=== PATIENT | male | born 1960 | race Two or more races ===

== ENCOUNTER 2020-04-01 16:05 | Inpatient (IN) | payer OTHER ==
[~2020-04-01] VITALS: Ht 170.2 cm; Wt 84.0 kg
[~2020-04-01 16:05] MED LIST: ASPI-231 PO; CARV25TA PO
[2020-04-01] MEDS ORDERED: FLEET ENEMA(ADULT) 135 ML PR ONE (16:30)
[2020-04-01] MEDS ORDERED: ONDANSETRON HCL 4 MG/2 ML VIAL IV ONE (16:30)
[2020-04-01] MEDS ORDERED: MORPHINE SULFATE 4 MG/ML SYR/VIAL IV ONE (16:30)
[2020-04-01 16:49] LABS: Basophils # (auto) 0 10 ^3/uL (0-0.2); Basophils % (auto) 0.8 % (0.0-2.0); Eosinophils # (auto) 0.1 10 ^3/uL (0-0.8); Eosinophils % (auto) 1.2 % (0.0-7.0); Hematocrit 38.2 % (41.0-53.0); Hemoglobin 13.1 g/dL (13.5-17.5); Lymphocytes % (auto) 19.1 % (10.0-50.0); Mean Corpuscular Hgb Conc. 34.3 g/dL (32.0-36.0); Mean Corpuscular Volume 96.1 fL (80.0-100.0); Monocytes # (auto) 0.4 10 ^3/uL (0-1.3); Monocytes % (auto) 7.3 % (0.0-12.0); Neutrophils # (auto) 3.8 10 ^3/uL (1.6-8.6); Neutrophils % (auto) 71.6 % (37.0-80.0); Red Blood Cells 3.98 10^6/uL (4.5-5.90); Red Cell Distribution Width 12.1 % (11.8-14.3); White Blood Cell 5.3 10^3/uL (4.4-10.8)
[2020-04-01 17:06] LABS: Calcium 8.6 mg/dL (8.5-10.1); Potassium 3.9 mmol/L (3.5-5.1)
[2020-04-01 17:12] LABS: BUN/Creatinine Ratio 12.1; Bilirubin, Total 0.8 mg/dL (0.2-1.0); Total Protein 7.7 g/dL (6.4-8.2)
[2020-04-01] MEDS ORDERED: ENOXAPARIN SOD 80 MG/0.8ML SYRINGE SC ONE (17:30)
[2020-04-01] MEDS ORDERED: ASPirin 81 mg TAB PO ONE (17:30)
[2020-04-01] MEDS ORDERED: NITROGLYCERIN 0.4 MG SL TAB SL PRN (19:00)
[2020-04-01] MEDS ORDERED: MORPHINE SULFATE INJECTION 2 MG/ML SYRG IV PRN (19:00)
[2020-04-01] MEDS ORDERED: ACETAMINOPHEN 500 MG TAB PO PRN (19:00)
[2020-04-01] MEDS ORDERED: DEXTROSE (50%) 50ML SYRG IV PRN (19:00)
[2020-04-01] MEDS ORDERED: POLYETHYLENE GLYCOL 17 GM PWDR PO ONE (19:00)
[2020-04-01] MEDS ORDERED: hydrALAZINE HCL 20 MG/ML VL IV PRN (19:00)
[2020-04-01] MEDS ORDERED: HYDROcodone-ACET 5/325MG TAB PO PRN (19:00)
[2020-04-01 19:16] LABS: CRP High Sensitivity 0.11 mg/dL (< 0.3)
[2020-04-01] MEDS: ACCU-CHEK COMFORT CURVE STRIP VI SCH (22:38)
[2020-04-01] MEDS: InsuLIN REG 1unit/0.01ml Soln (100units/ml) SC SCH (22:39)
[2020-04-01] MEDS: CARVEDILOL 12.5 MG TAB PO SCH (22:40)
[2020-04-01] MEDS: ATORVASTATIN 20 MG TAB PO SCH (22:59)
[2020-04-01] MEDS: DOCUSATE SOD 100 MG CAP PO SCH (22:59)
[2020-04-01] MEDS: LACTULOSE 20Gm/30ML SOLN PO SCH (22:59)
[2020-04-02] MEDS: LACTULOSE 20Gm/30ML SOLN PO SCH ×6 (03:26→21:15)
[2020-04-02 03:31] LABS: BUN/Creatinine Ratio 12.5; Calcium 8.6 mg/dL (8.5-10.1)
[2020-04-02] MEDS: ONDANSETRON HCL 4 MG/2 ML VIAL IV PRN (04:28)
[2020-04-02] MEDS: MORPHINE SULFATE INJECTION 2 MG/ML SYRG IV PRN (04:28)
[2020-04-02] MEDS ORDERED: FLEET ENEMA(ADULT) 135 ML PR ONE (04:45)
[2020-04-02] MEDS: InsuLIN REG 1unit/0.01ml Soln (100units/ml) SC SCH ×4 (07:00→21:17)
[2020-04-02] MEDS: ACCU-CHEK COMFORT CURVE STRIP VI SCH ×4 (07:06→21:17)
[2020-04-02 08:05] LABS: Basophils # (auto) 0 10 ^3/uL (0-0.2); Basophils % (auto) 0.6 % (0.0-2.0); Eosinophils # (auto) 0.1 10 ^3/uL (0-0.8); Hematocrit 37.7 % (41.0-53.0); Hemoglobin 12.9 g/dL (13.5-17.5); Lymphocytes # (auto) 0.8 10 ^3/uL (0.4-5.4); Lymphocytes % (auto) 13.8 % (10.0-50.0); Mean Corpuscular Hemoglobin 32.6 pg (28.0-32.0); Mean Corpuscular Hgb Conc. 34.3 g/dL (32.0-36.0); Mean Corpuscular Volume 95.3 fL (80.0-100.0); Monocytes # (auto) 0.4 10 ^3/uL (0-1.3); Monocytes % (auto) 7.7 % (0.0-12.0); Neutrophils # (auto) 4.4 10 ^3/uL (1.6-8.6); Neutrophils % (auto) 76.9 % (37.0-80.0); Nucleated Red Blood Cells % 0.1 %; Red Blood Cells 3.95 10^6/uL (4.5-5.90); Red Cell Distribution Width 12.1 % (11.8-14.3); White Blood Cell 5.7 10^3/uL (4.4-10.8)
[2020-04-02] MEDS: DOCUSATE SOD 100 MG CAP PO SCH ×2 (10:00→21:15)
[2020-04-02] MEDS ORDERED: LISINOPRIL 10 MG TAB PO SCH (10:00)
[2020-04-02] MEDS: CARVEDILOL 12.5 MG TAB PO SCH ×2 (10:00→22:44)
[2020-04-02 10:10] LABS: Urine Bacteria NONE SEEN /hpf (None Seen); Urine Blood Negative /uL (Negative); Urine Hyaline Cast MANY /lpf (0 - 2); Urine Mucus FEW (None Seen); Urine Specific Gravity 1.033 (1.001-1.035); Urine WBC 2 /hpf (0 - 3)
[2020-04-02] MEDS: FAMOTIDINE 20 MG TAB PO SCH (10:28)
[2020-04-02] MEDS: ASPirin-EC 81 mg tab PO SCH (10:28)
[2020-04-02] MEDS ORDERED: LIDOCAINE HCL 2% TOP JELLY 5ML TOP PRN (11:00)
[2020-04-02] MEDS ORDERED: GOLYTELY 4L KIT PO ONE (11:00)
[2020-04-02] MEDS ORDERED: FURO1TAB31 PO (13:41)
[2020-04-02] MEDS ORDERED: GLIP5TAB12 PO (13:41)
[2020-04-02] MEDS ORDERED: SPIR25TA PO (13:41)
[2020-04-02] MEDS ORDERED: TRAZ100T3 PO (13:41)
[2020-04-02] MEDS ORDERED: MIRT-68 PO (13:41)
[2020-04-02] MEDS ORDERED: SACU1TAB4 PO (13:41)
[2020-04-02] MEDS ORDERED: LACT10SO3 PO (13:43)
[2020-04-02 14:37] VITALS: BP 132/71
[2020-04-02 16:00] VITALS: BP 134/71
[2020-04-02 21:00] VITALS: BP 137/77
[2020-04-02] MEDS: ATORVASTATIN 20 MG TAB PO SCH (21:16)
[2020-04-02] MEDS: SACUBITRIL-VALSARTAN 24mg/26mg TAB PO SCH (21:16)
[2020-04-03] VITALS: BP 137/77
[2020-04-03] MEDS: LACTULOSE 20Gm/30ML SOLN PO SCH ×6 (02:00→22:00)
[2020-04-03 05:00] VITALS: BP 149/81
[2020-04-03 06:16] LABS: Basophils # (auto) 0 10 ^3/uL (0-0.2); Basophils % (auto) 0.4 % (0.0-2.0); Eosinophils # (auto) 0 10 ^3/uL (0-0.8); Eosinophils % (auto) 0.7 % (0.0-7.0); Hematocrit 38.2 % (41.0-53.0); Hemoglobin 13.6 g/dL (13.5-17.5); Lymphocytes # (auto) 0.9 10 ^3/uL (0.4-5.4); Lymphocytes % (auto) 16.9 % (10.0-50.0); Mean Corpuscular Hemoglobin 33.7 pg (28.0-32.0); Mean Corpuscular Hgb Conc. 35.5 g/dL (32.0-36.0); Mean Corpuscular Volume 94.9 fL (80.0-100.0); Monocytes # (auto) 0.5 10 ^3/uL (0-1.3); Monocytes % (auto) 8.8 % (0.0-12.0); Neutrophils # (auto) 3.9 10 ^3/uL (1.6-8.6); Neutrophils % (auto) 73.2 % (37.0-80.0); Nucleated Red Blood Cells % 0.1 %; Red Blood Cells 4.02 10^6/uL (4.5-5.90); Red Cell Distribution Width 12.4 % (11.8-14.3); White Blood Cell 5.4 10^3/uL (4.4-10.8)
[2020-04-03 06:23] LABS: INR 1.2 (0.9-1.15); Partial Thromboplastin Time 28.5 sec (23.0-31.2)
[2020-04-03 06:30] LABS: Potassium 3.7 mmol/L (3.5-5.1)
[2020-04-03 06:41] LABS: Albumin 3.9 g/dL (3.4-5.0); BUN/Creatinine Ratio 13.1; Calcium 8.6 mg/dL (8.5-10.1); Magnesium 2.4 mg/dL (1.6-2.6); Phosphorus 2.5 mg/dL (2.5-4.90); Total Protein 7.2 g/dL (6.4-8.2)
[2020-04-03] MEDS: InsuLIN REG 1unit/0.01ml Soln (100units/ml) SC SCH ×4 (06:49→22:00)
[2020-04-03] MEDS: ACCU-CHEK COMFORT CURVE STRIP VI SCH ×4 (06:49→22:08)
[2020-04-03] MEDS ORDERED: diphenhdrAMINE HCL 50 MG/1 ML VL ONE (08:09)
[2020-04-03] MEDS: MORPHINE SULFATE INJECTION 2 MG/ML SYRG IV PRN (08:22)
[2020-04-03 08:25] VITALS: BP 150/85
[2020-04-03] MEDS: fentaNYL CITRATE 100 MCG/2 ML VL ONE ×3 (09:24→09:31)
[2020-04-03] MEDS: MIDAZOLAM HCL 5 MG/ML-1ML VIAL ONE ×3 (09:24→09:31)
[2020-04-03] MEDS: DOCUSATE SOD 100 MG CAP PO SCH ×2 (10:41→21:58)
[2020-04-03] MEDS: SACUBITRIL-VALSARTAN 24mg/26mg TAB PO SCH ×2 (10:41→22:08)
[2020-04-03] MEDS: FAMOTIDINE 20 MG TAB PO SCH (10:41)
[2020-04-03] MEDS: ASPirin-EC 81 mg tab PO SCH (10:42)
[2020-04-03] MEDS: CARVEDILOL 12.5 MG TAB PO SCH ×2 (10:42→22:08)
[2020-04-03 16:00] VITALS: BP 110/62
[2020-04-03] MEDS ORDERED: SERTRALINE HCL 50 MG TAB PO ONE (18:00)
[2020-04-03 22:00] VITALS: BP 142/71
[2020-04-03] MEDS: ATORVASTATIN 20 MG TAB PO SCH (22:08)
[2020-04-03] MEDS: HYOSCYAMINE SULF 0.125 MG ODT TAB PO PRN (23:48)
[2020-04-04] VITALS: BP 142/71
[2020-04-04] MEDS ORDERED: POLYETHYLENE GLYCOL 17 GM PWDR PO ONE (00:45)
[2020-04-04] MEDS: LACTULOSE 20Gm/30ML SOLN PO SCH ×6 (02:00→21:49)
[2020-04-04] MEDS: HYOSCYAMINE SULF 0.125 MG ODT TAB PO PRN (04:50)
[2020-04-04 05:00] VITALS: BP 128/78
[2020-04-04] MEDS: InsuLIN REG 1unit/0.01ml Soln (100units/ml) SC SCH ×4 (06:34→21:49)
[2020-04-04] MEDS: ACCU-CHEK COMFORT CURVE STRIP VI SCH ×4 (06:34→21:49)
[2020-04-04 08:18] VITALS: BP 139/74
[2020-04-04] MEDS: FAMOTIDINE 20 MG TAB PO SCH (10:00)
[2020-04-04] MEDS: ONDANSETRON HCL 4 MG/2 ML VIAL IV PRN (10:29)
[2020-04-04] MEDS: ASPirin-EC 81 mg tab PO SCH (10:29)
[2020-04-04] MEDS: DOCUSATE SOD 100 MG CAP PO SCH ×3 (10:29→22:09)
[2020-04-04] MEDS: CARVEDILOL 12.5 MG TAB PO SCH (10:30)
[2020-04-04] MEDS: SACUBITRIL-VALSARTAN 24mg/26mg TAB PO SCH (10:30)
[2020-04-04] MEDS ORDERED: LORazepam 2MG/ML-1ML VIAL IV ONE (11:45)
[2020-04-04] MEDS: SERTRALINE HCL 50 MG TAB PO SCH (12:03)
[2020-04-04 16:25] VITALS: BP 105/59
[2020-04-04] MEDS: ATORVASTATIN 20 MG TAB PO SCH (21:59)
[2020-04-04 22:00] VITALS: BP 146/78
[2020-04-04] MEDS: LORazepam 0.5 MG TAB PO PRN (22:00)
[2020-04-04] MEDS: COREG 25 MG PO SCH (22:00)
[2020-04-04] MEDS: ENTRESTO PO SCH (22:01)
[2020-04-05] MEDS: LACTULOSE 20Gm/30ML SOLN PO SCH ×4 (01:51→14:00)
[2020-04-05 05:46] VITALS: BP 121/69
[2020-04-05] MEDS: InsuLIN REG 1unit/0.01ml Soln (100units/ml) SC SCH ×2 (06:05→11:14)
[2020-04-05] MEDS: ACCU-CHEK COMFORT CURVE STRIP VI SCH ×2 (06:05→11:12)
[2020-04-05] MEDS: LORazepam 0.5 MG TAB PO PRN (06:41)
[2020-04-05] MEDS: ENTRESTO PO SCH (10:00)
[2020-04-05] MEDS: ASPirin-EC 81 mg tab PO SCH (10:00)
[2020-04-05] MEDS: COREG 25 MG PO SCH (10:00)
[2020-04-05] MEDS: DOCUSATE SOD 100 MG CAP PO SCH (10:00)
[2020-04-05] MEDS: FAMOTIDINE 20 MG TAB PO SCH (10:01)
[2020-04-05] MEDS: SERTRALINE HCL 50 MG TAB PO SCH (10:01)
[2020-04-05 10:36] VITALS: BP 131/61
[2020-04-05 12:43] VITALS: BP 139/54
== END 2020-04-05 14:30 | disposition home or self-care (01) | DRG 281 ==
LOC: EDBD 16:05 → ER 16:11 → TELE 18:58 → TELE-CENTR 04-02 13:27
PROVIDERS: ADMIT Nurse Practitioner Acute Care; ATTEND Internal Medicine
PROC: 0DJD8ZZ Inspection of Lower Intestinal Tract, Via Natural or Artificial Opening Endoscopic (ICD-10-PCS; principal; 2020-04-03 09:20)
DX: I21.4 Non-ST elevation (NSTEMI) myocardial infarction (principal); I50.42 Chronic combined systolic (congestive) and diastolic (congestive) heart failure; I13.0 Hypertensive heart and chronic kidney disease with heart failure and stage 1 through stage 4 chronic kidney disease, or unspecified chronic kidney disease; I42.9 Cardiomyopathy, unspecified; K57.30 Diverticulosis of large intestine without perforation or abscess without bleeding; K80.20 Calculus of gallbladder without cholecystitis without obstruction; K59.00 Constipation, unspecified; E11.9 Type 2 diabetes mellitus without complications; E78.5 Hyperlipidemia, unspecified; Z20.822 Contact with and (suspected) exposure to COVID-19; I70.8 Atherosclerosis of other arteries; F41.9 Anxiety disorder, unspecified; K44.9 Diaphragmatic hernia without obstruction or gangrene; K62.89 Other specified diseases of anus and rectum; K76.0 Fatty (change of) liver, not elsewhere classified; N40.0 Benign prostatic hyperplasia without lower urinary tract symptoms; Z79.84 Long term (current) use of oral hypoglycemic drugs; Z79.899 Other long term (current) drug therapy; Z95.810 Presence of automatic (implantable) cardiac defibrillator; N18.32 Chronic kidney disease, stage 3b
CPT/HCPCS: 36415; 45378; 71045; 74176; 76705; 80048; 80053; 80061; 81001; 82962; 83036; 83735; 84100; 84443; 84484; 85025; 85610; 85730; 86141; 86850; 86900; 86901; 93005; 93306; 99291; G0378; J1815; J2250; J2405